=== PATIENT | female | born 1940 | race Caucasian/White ===

== ENCOUNTER → 2022-05-21 | Outpatient (CLI) | payer MEDICARE, MEDICAID ==
[~2022-05-21] MED LIST: BARIUM for suspension 96% w/w (Vanilla Silq Medium Density) PO ONE; BARIUM for suspension 98% w/w (Vanilla Silq High Density) PO ONE
--- NOTE | 2022-05-21 14:30 | Diagnostic Imaging Report ---
INDICATION: Dysphagia. TECHNIQUE: Patient ingested effervescent crystals as well as thin and thick barium and imaging of the esophagus was performed in multiple obliquities. Total of 33 seconds of fluoroscopic time was utilized. FINDINGS: Preliminary radiograph demonstrates a dual-lead left subclavian cardiac pacemaker. Lungs are clear. Esophagus has a smooth contour. There were occasional tertiary contractions present, however no mass or stricture is detected. There is a very small sliding-type hiatal hernia. No reflux was demonstrated. IMPRESSION: Small sliding-type hiatal hernia with occasional tertiary contractions. The study was otherwise unremarkable. Dictated by: Dictated on workstation # [id number]
== END ==
LOC: RAD 11:00
PROVIDERS: ATTEND Nurse Practitioner Family
DX: K44.9 Diaphragmatic hernia without obstruction or gangrene (principal)
CPT/HCPCS: 74220